=== PATIENT | male | born 1965 | race Caucasian/White ===

== ENCOUNTER 2024-05-25 18:40 | Emergency (ER) | payer BC, SELFPAY ==
[2024-05-25 18:51] VITALS: BP 142/75; PULSE 103; RESP 16; TEMP 36.4; O2SAT 99
--- NOTE | 2024-05-25 19:10 | ED.GENADULT ---
HPI - General Adult General Chief complaint: Wound/Laceration Stated complaint: Right arm swollen from bite Time Seen by Provider: 05/25/24 19:11 Source: patient, RN notes reviewed and old records reviewed Mode of arrival: ambulatory Limitations: no limitations History of Present Illness HPI narrative: 58-year-old male to [facility] with complaint right forearm redness, swelling, warmth for 2 days. Patient reports being bit or stung by something on right mid forearm approximately 48 hours ago. Patient states that he has been scratching, picking, and squeezing site. Patient reports increasing redness, swelling, warmth, pain and tightness that is increasing in intensity and spreading across the forearm, down into hand, and up into biceps. Patient hypertensive and tachycardic in triage. Patient endorses history of hypertension and states he is med compliant. Patient denies fever, headache, dizziness, numbness, tingling, nausea. Patient able to tolerate fluids by mouth. Respirations even and nonlabored. Related Data Allergies Allergy/AdvReac Type Severity Reaction Status Date / Time azithromycin Allergy Rash Verified 05/25/24 19:04 Review of Systems Review of Systems: All systems reviewed & are unremarkable except as noted in HPI and below Constitutional: Constitutional: Reports as per HPI, Denies body ache(s), Denies chills, Denies fatigue, Denies fever(s), Denies headache(s) and Denies weakness Eyes: Eyes: Reports no additional eye complaints ENT: Reports system reviewed and no additional complaints, except as documented Cardiovascular: Cardiovascular: Reports no additional cardiovascular complaints, Denies chest pain and Denies dyspnea Respiratory: Respiratory: Reports no additional respiratory complaints, Denies cough and Denies dyspnea Integumentary/Breasts: Skin/Breast: Reports as per HPI, Reports swelling (Right forearm), Reports new lesions ( right mid forearm), Reports erythema ( right forearm), Reports skin pain ( right forearm) and Reports skin swelling ( right forearm) Neurologic: Reports system reviewed and no additional complaints, except as documented Psychiatric: Psychiatric: Reports no additional psychiatric complaints PMFSH Past Medical History Medical History HTN (hypertension) Family History Family History Other Diabetes mellitus Hypertension Social History Social History Smoking status: Heavy tobacco smoker Tobacco type: cigarettes Second hand tobacco smoke exposure: Yes Alcohol intake: current Drinks per week: 12 Alcohol use details: only on the weekends Substance use: never Substance use type: does not use Lack of Transportation: No Lack of Food: Never True Current Housing: I Have Housing Concerned About Future Housing: No Difficulty Paying Gas/Electric Bills: No Difficulty Paying for Meds: No Currently Unemployed: No Education: High School Diploma/GED Difficulty w/ Childcare or Family Care: Decline to Answer Living arrangements: with family Additional living arrangements comments: Lives with . Occupation/Education: occupation Gender identity (if verbalized by the patient): Male Sexual Orientation (if Verbalized by the Patient): Straight or Heterosexual Spiritual care concerns: No Agree to blood products: Yes Comments At the time of my signature, I reviewed and agree with the nursing past medical, surgical, social, and family history. There is no relevant family history pertinent to the patient complaint. Exam Const: General: cooperative, healthy appearing, no acute distress, alert, uncomfortable, well groomed and well nourished Nutritional Appearance: well nourished Orientation/consciousness: patient oriented x3 Limitations: no limitations HENMT: Silvio
== END 2024-05-25 19:32 | disposition short-term general hospital (02) ==
PROVIDERS: Emergency Provider Nurse Practitioner Family; PCP Family Medicine
DX: L03.113 Cellulitis of right upper limb (principal); F17.210 Nicotine dependence, cigarettes, uncomplicated; I10 Essential (primary) hypertension
CPT/HCPCS: 99211; 99212; G0463